=== PATIENT | male | born 1995 | race Caucasian/White ===

== ENCOUNTER → 2017-03-22 | Day surgery (SDC) | payer OTHER ==
[~2017-03-22] MED LIST: NO MEDICATIONS
--- NOTE | ~2017-03-22 | OR ---
Unit #: [id number] #: [id number] Patient: ZULEYKA BORJA [id number] [address] [address] [id number] O MR#: [id number] NAME: ZULEYKA BORJA ROOM: Date of Procedure: 03/22/2017 Admission Date: 03/22/2017 Surgeon: Miguel Angel Quigley III, M.D. : 1995 Attending Physician: Miguel Angel Quigley III, M.D. Referring Physician: Miguel Angel Quigley III, M.D. Primary Care Physician: Nannette Song M.D. OPERATIVE REPORT PREOPERATIVE DIAGNOSIS Acute appendicitis. POSTOPERATIVE DIAGNOSIS Acute appendicitis. PROCEDURE PERFORMED Laparoscopic appendectomy. ANESTHESIA General. SPECIMENS Appendix to Pathology. COMPLICATIONS None apparent. ESTIMATED BLOOD LOSS Minimal. ANESTHESIA General endotracheal tube anesthesia. INDICATIONS FOR PROCEDURE This is a 22-year-old gentleman, who presented with right lower quadrant pain and leukocytosis and CT scan that showed acute appendicitis. He is here today for laparoscopic appendectomy. DESCRIPTION OF PROCEDURE After consent was obtained, the patient was brought to the operating room and placed in the supine position. General anesthetic was administered and his abdomen was prepped and draped in standard surgical fashion. I made a 1 cm incision just above the umbilicus. I elevated the fascia between 2 Tasha clamps and used a Veress needle to obtain CO2 pneumoperitoneum. I then placed a 5-mm trocar in that location without any difficulty. Next, a 12 mm port was placed in the right lateral abdomen and a 5-mm port was placed in the suprapubic region. He had an inflamed appendix that was non perforated with no abscess. I was able to easily elevate the appendix and I created a window at the base of the appendix and the mesoappendix. I then fired a blue load of the ANTONIA stapler across the base of the appendix and a white load across the Unit #: [id number] #: [id number] Patient: ZULEYKA BORJA mesoappendix. I had excellent hemostasis and all needle, sponge, and instrument counts were correct x2. I removed the appendix through an EndoCatch bag through the right lateral port incision. I used a neoClose device to reapproximate the fascia at the right lateral port incision. Pneumoperitoneum was released. I injected all the port sites with 0.25% plain Marcaine and I reapproximated the skin edges with interrupted 4-0 Vicryl subcuticular suture. Steri-Strips were then applied. The patient tolerated the procedure without any problems and returned to the recovery room in stable condition. Dictated by... Miguel Angel Quigley III, M.D. VCL/elisha TD: 03/23/2017 15:12 JOB #: [id number] OPERATIVE REPORT Page 1 of 1 X Miguel Angel Quigley III, MD X PROCEDURE OPERATIVE NOTE
--- NOTE | ~2017-03-22 | HP ---
Unit #: [id number] #: [id number] Patient: ZULEYKA BORJA [id number] [address] [address] [id number] O MR#: [id number] NAME: ZULEYKA BORJA. ROOM: Age: 22 Sex: M Admission Date: 03/22/2017 : 1995 Attending Physician: Miguel Angel Quigley III, M.D. Referring Physician: Miguel Angel Quigley III, M.D. Primary Care Physician: Nannette Song M.D. HISTORY AND PHYSICAL CHIEF COMPLAINT Abdominal pain. HISTORY OF PRESENT ILLNESS This is a 22-year-old gentleman who has been having some right lower quadrant pain for slightly more than half a day. He has had no prior episodes. He has had some mild nausea with this. The pain has lessened somewhat. He has had no change in bowel habits. PAST MEDICAL HISTORY Negative. PAST SURGICAL HISTORY 1. Tonsillectomy. 2. Right hand surgery. SOCIAL HISTORY He uses alcohol occasionally. He smokes marijuana occasionally. FAMILY HISTORY Negative for cancer. ALLERGIES Oxycodone, penicillin, sulfa and amoxicillin. CURRENT MEDICATIONS None. REVIEW OF SYSTEMS Negative for weight loss, fevers or jaundice. Otherwise as above. PHYSICAL EXAMINATION GENERAL: He is in no acute distress. VITALS: Blood pressure 137/74, heart rate 85, respiratory rate 16, temperature 98.6. HEENT: Pupils are equal and reactive to light and accommodation. Extraocular muscles are intact. NECK: Without masses or bruits. LUNGS: Breath sounds bilaterally with equal air exchange. HEART: Regular rate and rhythm without murmur. ABDOMEN: Soft and nondistended. He has 1-2+ tenderness in the right lower quadrant. EXTREMITIES: Without edema or cyanosis. NEUROLOGIC: He is alert and oriented. No focal deficits. Unit #: [id number] #: [id number] Patient: ZULEYKA BORJA DIAGNOSTIC STUDIES IMAGING: CT scan showed appendicitis. LABORATORY: White blood cell count 15,000. ASSESSMENT This is a 22-year-old gentleman who has acute appendicitis. PLAN I talked to him about proceeding with laparoscopic appendectomy, including the risks and benefits and he understands those and wishes to proceed. Dictated by Miguel Angel Quigley III, M.D. VCL/gz TD: 03/23/2017 08:15 JOB #: [id number] HISTORY AND PHYSICAL Page 1 of 1 X Miguel Angel Quigley III, MD HISTORY AND PHYSICAL
--- NOTE | ~2017-03-22 | CT2 ---
[facility] A Service of [facility] RADIOLOGY TEXT RESULTS PATIENT: ZULEYKA BORJA LOCATION: [facility] : [birth year] UNIT #: [id number] AGE: [address]: Miguel Angel Quigley III, MD SEX: M ORDER DR: [id number] [address] [address] [id number] E MR#: [id number] Acc #: [id number] NAME: ZULEYKA BORJA : 1995 SEX: M STUDY DATE/TIME: 03/22/2017 10:52 UNIT: SED ROOM: STUDY DESCRIPTION: CT Abd and Pelv W Cont Attending Physician: Chip Acevedo M.D. Ordering Physician: Chip Acevedo M.D. Primary Care Physician: Nannette Song M.D. MEDICAL IMAGING REPORT This report is preliminary unless electronic signature is present. EXAM CT of the abdomen and pelvis with IV contrast media. HISTORY Abdominal pain since midnight, pain in right lower abdomen with dry heaves. TECHNIQUE Axial imaging of the abdomen and pelvis was obtained with an IV contrast media. This CT exam was performed with one or more of the following radiation dose reduction techniques: automatic exposure control, adjustment of mA and/or kV according to patient size, and iterative reconstruction. FINDINGS Lung bases are normal. Liver, gallbladder, spleen, adrenal glands, pancreas, and both kidneys are normal. No dilated or thickened. Loops of bowel are seen in the upper abdomen. Appendix is thickened. There is nancy-appendiceal edema with a small amount of fluid just below the cecum. The bladder is unremarkable. No other pelvic fluid collections or masses are seen. CONCLUSION Markedly thickened appendix with periappendiceal fluid below the cecum, consistent with acute appendicitis. Dictated by... Jaiden Ramirez M.D. THIS IS AN ELECTRONICALLY VERIFIED REPORT [facility] A Service of [facility] RADIOLOGY TEXT RESULTS PATIENT: ZULEYKA BORJA LOCATION: [facility] : [birth year] UNIT #: [id number] AGE: [address]: Miguel Angel Quigley III, MD SEX: M ORDER DR: Jaiden Ramirez M.D. at 03/22/2017 3:17 PM ELVA/dorian TD: 03/22/2017 14:40 JOB #: [id number] MEDICAL IMAGING REPORT Page 1 of 1
[2017-03-22 09:27] LABS: BASOPHIL% 0.3 % (0-2.5); EOSINOPHIL# 0.2 X10e3 (0-0.7); EOSINOPHIL% 1.4 % (0.0-7.0); HEMATOCRIT 47.8 % (38.0-50.0); HEMOGLOBIN 16.8 gm/dL (13.0-16.0); LYMPHOCYTE# 1.4 X10e3 (1.0-3.5); LYMPHOCYTE% 9.3 % (17.0-45.0); MEAN CELL VOLUME 86.9 FL (83-96); MEAN CORPUSCULAR HEMOGLOBIN 30.5 PG (28-34); MEAN CORPUSCULAR HGB CONC 35.1 g/dL (30-36); MONOCYTE# 1.1 X10e3 (0-1.0); MONOCYTE% 7.3 % (3.0-12.0); NEUTROPHIL# 12.6 X10e3 (1.5-7.1); NEUTROPHIL% 81.7 % (40-75); PLATELET COUNT 214 X10e3 (140-420); RED CELL DISTRIBUTION WIDTH 13.1 % (11.0-15.5); WHITE BLOOD COUNT 15.4 X10e3 (4.0-10.5)
[2017-03-22 09:33] LABS: DIFF IND NO
[2017-03-22 09:36] LABS: URINE SOURCE CLEAN CATCH
[2017-03-22 09:45] LABS: URINE APPEARANCE CLEAR; URINE BILIRUBIN NEG (NEG); URINE BLOOD NEG (NEG); URINE COLOR YELLOW; URINE GLUCOSE NEG (NORM); URINE KETONE NEG (NEG); URINE LEUKOCYTE ESTERASE NEG (NEG); URINE NITRATE NEG (NEG); URINE PROTEIN NEG (NEG); URINE SPECIFIC GRAVITY 1.015 (1.003-1.035); URINE UROBILINOGEN 0.2 MG/DL (NORM)
[2017-03-22 09:46] LABS: MICRO INDICATED? NO
[2017-03-22 09:47] LABS: ALBUMIN SERUM 4.5 g/dL (3.5-5.0); BILIRUBIN, DIRECT 0.1 mg/dL (0.0-0.2); BILIRUBIN,INDIRECT 0.9 mg/dL (0.0-0.9); BUN/CREATININE RATIO 11.11; CALCIUM SERUM 8.8 mg/dL (8.4-10.2); CREATININE SERUM 0.9 mg/dL (0.6-1.4); GLOM FILT RATE Estimated 121.7 mL/min (>60); PROTEIN TOTAL SERUM 7.4 g/dL (6.0-8.3)
== END | disposition home or self-care (01) ==
LOC: SED 08:43 → CSUR 13:14
PROVIDERS: Emergency Medicine; Surgery
PROC: 0DTJ4ZZ Resection of Appendix, Percutaneous Endoscopic Approach (ICD-10-PCS; principal; 2017-03-22 15:00)
DX: K35.80 Unspecified acute appendicitis (principal); F12.90 Cannabis use, unspecified, uncomplicated; Z98.890 Other specified postprocedural states; Z88.0 Allergy status to penicillin; Z88.2 Allergy status to sulfonamides; Z88.5 Allergy status to narcotic agent
CPT/HCPCS: 36415; 74177; 80048; 80076; 81003; 82150; 83690; 85025; 88304; 96361; 96374; 96375; 99285; J1170; J1885; J2250; J2405; J2543; J3010; Q9967

== ENCOUNTER 2017-04-25 14:56 | Emergency (ER) | payer OTHER | END 2017-04-25 15:46 | disposition home or self-care (01) | LOC: CFTX 14:56 → CED 14:56 → CFTX 15:41 | DX: L25.5 Unspecified contact dermatitis due to plants, except food (principal); Z88.5 Allergy status to narcotic agent; Z88.2 Allergy status to sulfonamides; Z88.1 Allergy status to other antibiotic agents | CPT/HCPCS: 96372; 99282; J1100 ==